=== PATIENT | male | born 1950 | race Caucasian/White ===

== ENCOUNTER 2025-01-14 17:29 | Observation (INO) ==
[2025-01-14] MEDS: OPTIRAY 320 125ml IV ONE (17:44)
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
--- NOTE | 2025-01-14 18:05 | CT Scan Report ---
EXAMINATION: Head CT without CLINICAL HISTORY: Neurodeficit PRIORS: None TECHNIQUE: Contiguous axial images were obtained through the head without the use of intravenous contrast. Sagittal and coronal reformations are supplied. FINDINGS: Age appropriate parenchymal volume is noted with moderate periventricular lucency suggesting small vessel occlusive disease.. Mullen-white differentiation is preserved. No edema or midline shift. No intra-axial or extra-axial hemorrhage. Ventricles are normal in size and configuration. Brainstem and cerebellum have a normal appearance. Calvarium unremarkable. Paranasal sinuses and mastoid air cells are well-pneumatized. Globes are intact. No retrobulbar abnormality. IMPRESSION: No CT evidence of an acute intracranial abnormality. Brain MRIcould be considered if appropriate. Findings discussed with Dr. Capo Steward in the emergency department at 6:02 PM EST on 01/14/2025. Electronically signed by Beckie Montgomery 01-14-2025 6:05 PM
--- NOTE | 2025-01-14 18:05 | CT Scan Report ---
EXAM: CT angio neck with con CLINICAL HISTORY: Neurodeficit TECHNIQUE: Contiguous CTA axial images were obtained through the neck with the administration of intravenous contrast. Sagittal and coronal reformations are supplied. MIPS are supplied. COMPARISON: None FINDINGS: Left-sided aortic arch present. Appropriate takeoff of the great vessels noted. The common, internal and external carotid arteries are patent with no thrombus or high-grade stenosis. Mild calcified atherosclerotic plaque present at the bulbs and proximal internal carotid arteries. Dental amalgam creates significant beam hardening artifact diminishing image quality. The distal internal carotid arteries enter the petrous portion of the skull base normally. The vertebral arteries are patent. Right vertebral artery is dominant. No hemodynamically significant stenosis. Vertebral artery is tortuous at the level of the skull base and not clearly identified performing the basilar artery. IMPRESSION: No CT evidence of an acute arterial abnormality in the neck. Findings discussed with Dr. Capo Steward in the emergency department at 6:02 PM EST on 01/14/2025. Electronically signed by Beckie Montgomery 01-14-2025 6:05 PM
--- NOTE | 2025-01-14 18:05 | CT Scan Report ---
EXAM: CTA head with CLINICAL HISTORY: Neuro deficit TECHNIQUE: Contiguous CTA axial images were obtained through the head after the administration of intravenous contrast. Sagittal and coronal reformations are supplied. PRIORS: None FINDINGS: Vertebral arteries are tortuous at the level of the brainstem, forming the basilar artery. [place] is patent. No thrombus or hemodynamically significant stenosis. Moderate atherosclerotic disease of the internal carotid arteries in the cavernous sinuses without high-grade stenosis or thrombus No aneurysmal dilatation or trivedi aneurysm. No enhancing mass in the brain. IMPRESSION: No CTA evidence of an acute vascular abnormality. Findings discussed with Dr. Capo Steward in the emergency department at 6:02 PM EST on 01/14/2025. Electronically signed by Beckie Montgomery 01-14-2025 6:05 PM
[2025-01-14 18:11] LABS: Hematocrit (blood only) 38.7 % (42.0-52.0); Hemoglobin 13.8 g/dl (14.0-18.0); Immature Granulocytes # (auto) 0.01 K/uL (0.01-0.20); Immature Granulocytes % (auto) 0.2 %; Mean Corpuscular Hemoglobin 32.8 pg (25.0-34.0); Mean Corpuscular Volume 91.9 fL (80.0-100.0); Platelet Count 204 K/uL (130-400); RDW Standard Deviation 41.8 fL (36.4-46.3); Red Blood Count 4.21 M/uL (4.70-6.10); White Blood Count 4.87 K/ul (4.8-10.8)
[2025-01-14 18:29] LABS: Alanine Aminotransferase 13.0 U/L (7-52); Albumin Globulin Ratio 1.2 (0.9-2); Alkaline Phosphatase 66.0 U/L (34-104); Anion Gap 5.0 (3-11); Bilirubin,Total 0.5 mg/dl (0.2-1.0); Blood Urea Nitrogen 7.0 mg/dl (6-23); Calcium 8.7 mg/dl (8.6-10.3); Carbon Dioxide 28.0 mmol/L (21-32); Chloride 95.0 mmol/L (98-107); Creatinine Clr Calc Pharmacy 91.4 ml/min; Globulin 3.1 gm/dl (2.5-4.0); Glucose 76.0 mg/dl (70-99(Fasting)); Magnesium 1.9 mg/dl (1.7-2.4); Potassium 4.1 mmol/L (3.5-5.1); Sodium 128.0 mmol/L (136-145); Total Protein 6.8 gm/dl (6.0-8.3)
[2025-01-14 18:42] LABS: INR 1.1 (0.9-1.1); Partial Thromboplastin Time 27 Seconds (21-31); Prothrombin Time 11.4 Seconds (9.0-12.0)
[2025-01-14] MEDS: CLOPIDOGREL BISULFATE 300 MG TAB PO STA (19:57)
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
[2025-01-14 21:01] LABS: Appearance Urine Clear (Clear); Glucose Urine UA Negative (Negative)
[2025-01-14] MEDS: ATORVASTATIN 40 MG TAB PO STA (21:03)
[2025-01-14] MEDS: LACTATED RINGER'S 1,000 ML IV SCH (21:04)
--- NOTE | 2025-01-14 22:34 | Magnetic Resonance Report ---
Exam(s): MRI HEAD Without Contrast EXAM: MR Head Without Intravenous Contrast CLINICAL HISTORY: Reason for exam: TIA, off balance, right arm numbness. TECHNIQUE: Magnetic resonance images of the head/brain without intravenous contrast in multiple planes. COMPARISON: Prior head CT from January 06, 2025. FINDINGS: Brain: There is a small remote intraparenchymal hemorrhage in the posterior right internal capsule. Advanced nonspecific white matter changes. No mass. No hemorrhage. No acute infarct. The flow voids at the base the brain are intact. Ventricles: Unremarkable. No ventriculomegaly. Bones/joints: Unremarkable. No acute fracture. Sinuses: Chronic ethmoid, maxillary and frontal sinusitis.. No acute sinusitis. Mastoid air cells: Unremarkable as visualized. No mastoid effusion. Orbits: Unremarkable as visualized. IMPRESSION: No evidence of acute intracranial pathology. Electronically signed by: Mildred Duran MD 01/14/25 22:33 PM
[2025-01-14] MEDS ORDERED: PHARMACIST DISCHARGE MED REC CONSULT PRN (23:28)
[2025-01-14] MEDS ORDERED: ONDANSETRON INJ 2 MG/ML 2 ML VIAL IV PRN (23:28)
[2025-01-14] MEDS ORDERED: MELATONIN 3 MG TAB PO PRN (23:28)
[2025-01-14] MEDS ORDERED: DOCUSATE SODIUM 100 MG CAP PO PRN (23:28)
[2025-01-14] MEDS ORDERED: ACETAMINOPHEN 325 MG TAB PO PRN (23:28)
[2025-01-15] MEDS: LATANOPROST 0.005% OP SOLN 2.5 ML BTL OPB SCH (02:36)
[2025-01-15 08:10] VITALS: RESP 18; TEMP 98.4; O2SAT 95
[2025-01-15 08:16] LABS: Hematocrit (blood only) 40.6 % (42.0-52.0); Hemoglobin 15.0 g/dl (14.0-18.0); Immature Granulocytes # (auto) 0.02 K/uL (0.01-0.20); Immature Granulocytes % (auto) 0.3 %; Mean Corpuscular Hemoglobin 33.3 pg (25.0-34.0); Mean Corpuscular Volume 90.2 fL (80.0-100.0); Platelet Count 219 K/uL (130-400); RDW Standard Deviation 40.1 fL (36.4-46.3); Red Blood Count 4.50 M/uL (4.70-6.10); White Blood Count 5.89 K/ul (4.8-10.8)
[2025-01-15 08:34] LABS: Anion Gap 7.0 (3-11); Blood Urea Nitrogen 6.0 mg/dl (6-23); Calcium 9.3 mg/dl (8.6-10.3); Carbon Dioxide 27.0 mmol/L (21-32); Chloride 97.0 mmol/L (98-107); Cholesterol 154.0 mg/dl (0-200); Creatinine Clr Calc Pharmacy 98.9 ml/min; Glucose 111.0 mg/dl (70-99(Fasting)); HDL Cholesterol 35.0 mg/dl; Potassium 4.1 mmol/L (3.5-5.1); Sodium 131.0 mmol/L (136-145); Triglycerides 140.0 mg/dl (0-150)
[2025-01-15] MEDS ORDERED: STROKE PATIENT DISCHARGE STA (08:44)
--- NOTE | 2025-01-15 08:45 | Pharmacy Report ---
- Date of Service January 15, 2025 - Pharmacy CVA/TIA Medication Review Medications to Prevent Stroke handout has been added to the patients discharge packet. Antiplatelet(s) * aspirin 81mg PO daily + clopidogrel 75 mg PO daily Cholesterol * High intensity statin: atorvastatin 40 mg daily DVT Prophylaxis * SCD knee Therapeutic Anticoagulation * No history of Afib/Aflutter noted Type 2 Diabetes * Patient does not have T2DM
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
[2025-01-15] MEDS: ASPIRIN 81 MG ECTAB PO SCH (09:07)
[2025-01-15 09:19] VITALS: BP 164/105; PULSE 62
[2025-01-15] MEDS: CLOPIDOGREL BISULFATE 75 MG TAB PO SCH (09:22)
[2025-01-15] MEDS: ATORVASTATIN 40 MG TAB PO SCH (09:22)
[2025-01-15 09:27] LABS: Hemoglobin A1C 5.2 % (4.5-5.6)
--- NOTE | 2025-01-15 20:16 | XCELERA ---
[id number]
--- NOTE | 2025-01-16 06:13 | Electrocardiogram Report ---
Test Reason : Blood Pressure : */* mmHG Vent. Rate : 69 BPM Atrial Rate : 69 BPM P-R Int : 146 ms QRS Dur : 88 ms QT Int : 424 ms P-R-T Axes : 58 12 11 degrees QTcB Int : 454 ms Sinus rhythm with marked sinus arrhythmia Otherwise normal ECG No previous ECGs available Confirmed by Moreno Jackson ([id number]) on 01/16/2025 6:13:27 AM Referred By: REFERRED SELF Confirmed By: Moreno Jackson
--- NOTE | 2025-01-19 13:08 | Pharmacy Report ---
Pharmacist Stroke Counseling - Date of Service January 19, 2025 - Scope: Pharmacy has been consulted to provide medication discharge counseling for this patient admitted with transient ischemic attack as per the Pharmacist Discharge Counseling for Stroke Patients Protocol. - Medications on Discharge: Home Medications Medication Instructions Recorded Confirmed acetaminophen 650 mg 1,300 mg PO DIRECTED PRN 01/14/25 01/14/25 tablet,extended release (Tylenol ARTHRITIS PAIN Arthritis Pain) aspirin 81 mg tablet,delayed 81 mg PO DAILY 01/14/25 01/14/25 release hydroxyzine HCl 25 mg tablet 25 mg PO Q6H PRN ANXIETY/ITCHING 01/14/25 01/14/25 latanoprost 0.005 % eye drops 1 drp OPB HS 01/14/25 01/14/25 losartan 25 mg tablet 25 mg PO BID 01/14/25 01/14/25 New Rx's Medication Instructions Recorded clopidogrel 75 mg tablet 75 mg PO QAM #30 tabs 01/15/25 - Action: The above medications, specifically ones for stroke treatment/prophylaxis, have been reviewed in detail with the patient and/or patient pest control service representative(s) prior to discharge. This includes indication, common adverse reactions, drug interactions, and medication administration. Medication counseling has been employed using the teach-back method to ensure understanding. - Outcome: The patient and/or patient pest control service representative(s) have demonstrated understanding of the medications. Additional comments: * Patient confirmed that clopidogrel was picked up from pharmacy and understands he will be taking it along with aspirin 3 weeks and then clopidogrel only ongoing. * No questions at this time. No obvious barriers to medication compliance noted on interview. Thank you for allowing pharmacy to be involved in the care of this patient. Please call [phone] with any additional questions
== END 2025-01-15 10:03 | disposition home or self-care (01) ==
LOC: ED 17:29 → EDINP 17:29 → SUATTDRO 20:00 → 2N 23:29